=== PATIENT | male | born 1980 | race American Indian/Alaskan Native ===

== ENCOUNTER 2019-01-28 00:11 | Emergency (ER) | payer BC, SELFPAY ==
--- NOTE | 2019-01-28 00:56 | EDPHYS ---
Physician Documentation [facility] Name: Cory Vasquez Age: 38 yrs Sex: Male : 1980 Arrival Date: 01/28/2019 Time: 00:14 Bed 13 Private MD: GARCIA Physician Perfecto Oden HPI: 01/28 00:46 This 38 yrs old Other Male presents to ER via Ambulatory with complaints of left groin cp pain. 00:47 left groin area. Onset: The symptoms/episode began/occurred 2 day(s) ago, started after cp performing "stretching exercises". Severity of symptoms: in the emergency department the symptoms are unchanged. 00:49 The patient has been recently seen at an urgent care, for similar complaints, given Rxs cp for steroids and muscle relaxers. Historical: - Allergies: 00:21 Ibuprofen; ed1 - Home Meds: 00:21 metformin 500 mg Oral tab 1 tab daily [Active]; Januvia oral oral [Active]; ed1 - PMHx: 00:21 Diabetes - NIDDM; ed1 - PSHx: 00:21 Disc herniation L4-L5; ed1 - Immunization history:: Adult Immunizations up to date. - Social history:: Smoking status: Patient/guardian denies using tobacco. - Ebola Screening: : Patient negative for fever greater than or equal to 101.5 degrees Fahrenheit, and additional compatible Ebola Virus Disease symptoms Patient denies exposure to infectious person Patient denies travel to an Ebola-affected area in the 21 days before illness onset No symptoms or risks identified at this time. ROS: 00:48 Constitutional: Negative for body aches, chills, fever, poor PO intake. cp 00:48 Eyes: Negative for injury, pain, redness, and discharge. cp 00:48 Cardiovascular: Negative for chest pain, palpitations. 00:48 Respiratory: Negative for cough, shortness of breath, wheezing. 00:48 Abdomen/GI: Negative for abdominal pain, nausea, vomiting, and diarrhea. 00:48 : Negative for urinary symptoms, testicular pain 00:48 MS/extremity: Positive for pain, tenderness, of the medial aspect of left thigh and left groin, Negative for decreased range of motion, paresthesias. 00:48 Skin: Negative for cellulitis, rash. 00:48 All other systems are negative. Exam: 00:51 Head/Face: Normocephalic, atraumatic. cp 00:51 Constitutional: The patient appears in no acute distress, alert, awake, non-toxic, well developed, well nourished. 00:51 Eyes: Periorbital structures: appear normal, Conjunctiva: normal, no exudate, no injection, Sclera: no appreciated abnormality, Lids and lashes: appear normal, bilaterally. 00:51 ENT: External ear(s): are unremarkable, Nose: is normal, Mouth: Lips: moist, Oral mucosa: moist, Posterior pharynx: is normal, airway is patent, no erythema, no exudate. 00:51 Chest/axilla: Inspection: normal, Palpation: is normal, no crepitus, no tenderness. 00:51 Cardiovascular: Rate: normal, Rhythm: regular. 00:51 Respiratory: the patient does not display signs of respiratory distress, Respirations: normal, no use of accessory muscles, no retractions, no splinting, no tachypnea. 00:51 Abdomen/GI: Inspection: abdomen appears normal, Palpation: abdomen is soft and non-tender, in all quadrants. 00:51 Back: pain, is absent, ROM is normal. 00:51 Musculoskeletal/extremity: Extremities: grossly normal except: noted in the left groin: pain, tenderness, There is no evidence of decreased ROM, erythema, swelling, ROM: limited passive range of motion due to pain, in the left groin. 00:51 Skin: cellulitis, is not appreciated, no rash present. Vital Signs: 00:21 BP 151 / 86; Pulse 90; Resp 18; Temp 99.2; Pulse Ox 97% on R/A; Weight 88.45 kg; Height ed1 5 ft. 9 in. (175.26 cm); Pain 8/10; 01:10 BP 130 / 81; Pulse 84; Resp 15; Pulse Ox 98% on R/A; ag4 00:21 Body Mass Index 28.80 (88.45 kg, 175.26 cm) ed1 MDM: 00:28 Patient medically screened. cp 00:50 Differential Diagnosis UTI, testicular torsion, kidney stone. cp 00:54 Data reviewed: vital signs, nurses notes, and as a result, I will discharge patient. cp Counseling: I had a detailed discussion with the patient and/or guardian regarding: the historical points, exam findings, and any diagnostic results supporting the discharge/admit diagnosis, the need for outpatient follow up, a family practitioner, to return to the emergency department if symptoms worsen or persist or if there are any questions or concerns that arise at home. Administered Medications: No medications were administered Disposition: 01/28/19 00:55 Discharged to Home. Impression: Left groin strain. - Condition is Stable. - Discharge Instructions: Muscle Strain. - Prescriptions for Tramadol 50 mg Oral Tablet - take 1 tablet by ORAL route every 8 hours as needed; 12 tablet. - Medication Reconciliation Form, Thank You Letter, Antibiotic Education, Prescription Opioid Use form. - Follow up: Private Physician; When: 2 - 3 days; Reason: Recheck today's complaints. - Problem is new. - Symptoms are unchanged. Addendum: 01/30/2019 09:20 Co-signature as Attending Physician, Perfecto Oden MD I agree with the assessment and c gold plan of care. Signatures: Perfecto Oden MD MD cha Riggs, Erika RN RN ed1 Perfecto Swan PA PA Florencio Eden, RN RN jb4 Corrections: (The following items were deleted from the chart) 01/28 00:49 00:47 The patient has been recently seen at an urgent care, for similar complaints, was cp given a prescription for pain medications, given RXs for muscle relaxant, cp 01:15 00:55 01/28/2019 00:55 Discharged to Home. Impression: Left groin strain. Condition is jb4 Stable. Forms are Medication Reconciliation Form, Thank You Letter, Antibiotic Education, Prescription Opioid Use. Follow up: Private Physician; When: 2 - 3 days; Reason: Recheck today's complaints. Problem is new. Symptoms are unchanged. cp
--- NOTE | 2019-01-28 00:56 | ER ---
Nurse's Notes [facility] Name: Cory Vasquez Age: 38 yrs Sex: Male : 1980 Arrival Date: 01/28/2019 Time: 00:14 Bed 13 Private MD: Diagnosis: Left groin strain Presentation: 01/28 00:18 Presenting complaint: Patient states: I have this pain in my leg that sometimes moves ed1 around to my back side. I went to urgent care and they gave me some steroids and muscle relaxers but its getting worse. Transition of care: patient was not received from another setting of care. Onset of symptoms was January 26, 2019. Risk Assessment: Do you want to hurt yourself or someone else? Patient reports no desire to harm self or others. Initial Sepsis Screen: Does the patient meet any 2 criteria? No. Patient's initial sepsis screen is negative. Does the patient have a suspected source of infection? No. Patient's initial sepsis screen is negative. Care prior to arrival: None. 00:18 Method Of Arrival: Ambulatory ed1 00:18 Acuity: DICK 4 ed1 Triage Assessment: 00:21 General: Appears uncomfortable, Behavior is calm, cooperative. Pain: Complains of pain ed1 in left hip Pain radiates to low back area and left leg Pain currently is 8 out of 10 on a pain scale. Historical: - Allergies: 00:21 Ibuprofen; ed1 - Home Meds: 00:21 metformin 500 mg Oral tab 1 tab daily [Active]; Januvia oral oral [Active]; ed1 - PMHx: 00:21 Diabetes - NIDDM; ed1 - PSHx: 00:21 Disc herniation L4-L5; ed1 - Immunization history:: Adult Immunizations up to date. - Social history:: Smoking status: Patient/guardian denies using tobacco. - Ebola Screening: : Patient negative for fever greater than or equal to 101.5 degrees Fahrenheit, and additional compatible Ebola Virus Disease symptoms Patient denies exposure to infectious person Patient denies travel to an Ebola-affected area in the 21 days before illness onset No symptoms or risks identified at this time. Screenin:00 Abuse screen: Denies threats or abuse. Nutritional screening: No deficits noted. jb4 Tuberculosis screening: No symptoms or risk factors identified. Fall Risk None identified. Assessment: 01:00 General: Appears in no apparent distress. uncomfortable, Behavior is calm, cooperative, jb4 appropriate for age. Pain: Complains of pain in medial aspect of left thigh Pain does not radiate. Pain currently is 6 out of 10 on a pain scale. Quality of pain is described as Pulling. Neuro: Level of Consciousness is awake, alert, obeys commands, Oriented to person, place, time, situation. Cardiovascular: Patient's skin is warm and dry. Respiratory: Airway is patent Respiratory effort is even, unlabored, Respiratory pattern is regular, symmetrical. GI: No signs and/or symptoms were reported involving the gastrointestinal system. : No signs and/or symptoms were reported regarding the genitourinary system. EENT: No signs and/or symptoms were reported regarding the EENT system. Derm: Skin is intact, Skin is dry, Skin is normal, Skin temperature is warm. Musculoskeletal: Circulation, motion, and sensation intact. Vital Signs: 00:21 BP 151 / 86; Pulse 90; Resp 18; Temp 99.2; Pulse Ox 97% on R/A; Weight 88.45 kg; Height ed1 5 ft. 9 in. (175.26 cm); Pain 8/10; 01:10 BP 130 / 81; Pulse 84; Resp 15; Pulse Ox 98% on R/A; ag4 00:21 Body Mass Index 28.80 (88.45 kg, 175.26 cm) ed1 ED Course: 00:14 Patient arrived in ED. am2 00:20 Triage completed. ed1 00:21 Arm band placed on left wrist. ed1 00:27 Florencio Sung RN is Primary Nurse. jb4 00:28 Perfecto Swan PA is PHCP. cp 00:28 Perfecto Oden MD is Attending Physician. cp 01:00 Patient has correct armband on for positive identification. Placed in gown. Bed in low jb4 position. Call light in reach. Side rails up X 1. Pulse ox on. NIBP on. 01:00 No provider procedures requiring assistance completed. Patient did not have IV access jb4 during this emergency room visit. Administered Medications: No medications were administered Outcome: 00:55 Discharge ordered by . cp 01:14 Discharged to home ambulatory. jb4 01:14 Condition: stable 01:14 Discharge instructions given to patient, Instructed on discharge instructions, follow up and referral plans. medication usage, Demonstrated understanding of instructions. 01:15 Patient left the ED. jb4 Signatures: Anjelica Chavira RN RN ed1 Perfecto Swan PA PA cp Bryson, James, RN RN jb4 Nataliia Cordoba am2 Diogenes Underwood ag4
== END 2019-01-28 01:15 | disposition home or self-care (01) ==
LOC: ER 00:11
DX: S39.011A Strain of muscle, fascia and tendon of abdomen, initial encounter (principal); E11.9 Type 2 diabetes mellitus without complications; Z88.6 Allergy status to analgesic agent
CPT/HCPCS: 99283